=== PATIENT | male | born 1970 | race Two or more races ===

== ENCOUNTER 2021-11-09 11:30 | Inpatient (IN) | payer OTHER ==
[~2021-11-09] VITALS: Ht 170.2 cm; Wt 88.9 kg
[2021-11-09] MEDS ORDERED: OMEGA-31000 MG PO (12:37)
[2021-11-09] MEDS ORDERED: TRICOR48 MG PO (12:38)
[2021-11-09] MEDS ORDERED: PLAVIX75 MG PO (12:38)
[2021-11-09] MEDS ORDERED: LIPITOR20 MG PO (12:38)
[2021-11-17] MEDS ORDERED: PERCOCET 5-3251 EACH PO (15:16)
== END 2021-11-17 17:40 | disposition home or self-care (01) | DRG 331 ==
LOC: ADM 11:30 → EDSTATUS 11:30 → O/R 11-14 06:49 → SURH 11-14 07:00 → SURG 11-14 16:10
PROVIDERS: ADMIT Surgery; ATTEND Surgery
PROC: 07BC4ZZ Excision of Pelvis Lymphatic, Percutaneous Endoscopic Approach (ICD-10-PCS; 2021-11-14)
PROC: 0DBU4ZZ Excision of Omentum, Percutaneous Endoscopic Approach (ICD-10-PCS; 2021-11-14)
PROC: 0DTF4ZZ Resection of Right Large Intestine, Percutaneous Endoscopic Approach (ICD-10-PCS; principal; 2021-11-14 07:00)
DX: D12.2 Benign neoplasm of ascending colon (principal); K66.8 Other specified disorders of peritoneum; Z20.822 Contact with and (suspected) exposure to COVID-19; G47.30 Sleep apnea, unspecified

== ENCOUNTER 2021-12-18 20:46 | Inpatient (IN) | payer OTHER ==
[~2021-12-18] VITALS: Ht 170.2 cm; Wt 82.6 kg
[~2021-12-18 20:46] MED LIST: LIPITOR20 MG PO; OMEGA-31000 MG PO; PERCOCET 5-3251 EACH PO; PLAVIX75 MG PO; TRICOR48 MG PO
[2021-12-18] MEDS ORDERED: SUPER TWIN EP1250 MG (21:32)
--- NOTE | 2021-12-18 21:34 | NUR ---
PTE ALERTA Y ORIENTADO POR BELÉN ESFERAS CON BUEN PATRON RESPIRATORIO. REFIERE QUE TIENE DOLOR ABDOMINAL Y VOMITOS DESDE LA MANANA, EN ADICIONAL REFIERE QUE TUVO UN EP DE VOMITO COLOR CAFE. VOMITOS X2. PTE OPERADO EL DE ARTIS POR
--- NOTE | 2021-12-18 23:25 | NUR ---
SE REALIZAN MUESTRAS DE FADIA A PACIENTE POR ORDEN MEDICA, SE ORIENTA A PACIENTE SOBRE USO Y EFECTOS DE LOS MEDICAMENTOS A SER ADMINISTRADOS. PACIENTE SE LE REALIZAN MUESTRAS DE FADIA Y SE MANTIENE EN ESPERA DE REALIZAR INSERCION DE NASOGASTRICO.
--- NOTE | 2021-12-19 00:13 | NUR ---
SE REALIZA INSERCION DE TUBO NASOGASTRICO #19 EN FOSA NASAL DERECHA. PACIENTE ELIMINA 3ML DE SECRECIONES COLO CAFE OSCURO. SE CONECTA A SUCCION INTERMITENTE Y SE MANTIENE EN MONITOREO MORA.
--- NOTE | 2021-12-19 00:30 | NUR ---
PACIENTE UBICADA EN DARRELL OSVALDO 13 CON MONITOR CARDIACO Y OXIMETRIA CONTINUA. PACIENTE AL MOMENTO ALERTA, CONCIENTE Y ORIENTADA X3 LA MISMA ESTABLE AL MOMENTO.
--- NOTE | 2021-12-19 07:02 | NUR ---
SE LE ORIENTA A PACIENTE MASCULINO ALERTA Y ORIENTADO X3, EN DARRELL #10 CON BARRANDAS ELEVADAS. AREA DE VENOPUNCION PATENTE CAYDEN DE EDEMA Y ENROJECIMIENTO. TUBO NASOGATRICO CON SUCCION INTERMITENTE. CONSULTA CON DR. CANTU. SE LE SRI EN TODO MOMENTO PRIVACIDAD Y SEGURIDAD.
[2021-12-19] MEDS ORDERED: MOMETASONE FURO15 G2 (16:37)
[2021-12-19] MEDS ORDERED: CYCLOBENZAPRINE10 MG (16:37)
[2021-12-19] MEDS ORDERED: FENOFIBRATE48 MG (16:37)
[2021-12-19] MEDS ORDERED: ATORVASTATIN CA10 MG (16:37)
[2021-12-19] MEDS ORDERED: CLOPIDOGREL BIS75 MG (16:37)
== END 2021-12-24 22:33 | disposition home or self-care (01) | DRG 390 ==
LOC: ER 20:46 → SURH 12-19 09:19
PROVIDERS: ADMIT Surgery; ATTEND Surgery
PROC: 0DH67UZ Insertion of Feeding Device into Stomach, Via Natural or Artificial Opening (ICD-10-PCS; principal; 2021-12-19)
PROC: 02HV33Z Insertion of Infusion Device into Superior Vena Cava, Percutaneous Approach (ICD-10-PCS; 2021-12-21)
PROC: 3E0436Z Introduction of Nutritional Substance into Central Vein, Percutaneous Approach (ICD-10-PCS; 2021-12-21)
PROC: BW21ZZZ Computerized Tomography (CT Scan) of Abdomen and Pelvis (ICD-10-PCS; 2021-12-21)
DX: K56.609 Unspecified intestinal obstruction, unspecified as to partial versus complete obstruction (principal); E86.0 Dehydration; Z20.822 Contact with and (suspected) exposure to COVID-19

== ENCOUNTER 2023-01-03 23:47 | Emergency (ER) | payer OTHER ==
[~2023-01-03] VITALS: Ht 170.2 cm; Wt 86.2 kg
[~2023-01-03 23:47] MED LIST changes: +ATORVASTATIN CA10 MG; +CLOPIDOGREL BIS75 MG; +CYCLOBENZAPRINE10 MG; +FENOFIBRATE48 MG; +MOMETASONE FURO15 G2; +SUPER TWIN EP1250 MG
[2023-01-04 03:39] LABS: HEMATOCRIT 38.5 % (39.0-48.0); HEMOGLOBIN 12.8 g/dL (13-16.00); MEAN CELL VOLUME 87.7 fL (80.0-100.00); MEAN CORPUSCULAR HEMOGLOBIN 29.1 pg (27.00-32.0); MEAN CORPUSCULAR HGB CONC 33.2 g/dl (32.0-36.0); PLATELET COUNT 190 K/uL (150-450); RED BLOOD COUNT 4.39 M/uL (4.00-6.00); RED CELL DISTRIBUTION WIDTH 12.8 % (11.5-14.5)
[2023-01-04 03:58] LABS: INR 1.03; PARTIAL THROMBOPLASTIN TIME 31.1 SECONDS (22.0-34.0); PROTHROMBIN TIME 10.8 SECONDS (9.0-11.5)
[2023-01-04 04:02] LABS: ALBUMIN 3.2 gm/dL (3.4-5.0); BILIRUBIN TOTAL 0.72 mg/dL (0.3-1.2); BILIRUBIN,CONJUGATED 0.22 mg/dL (0.0-0.2); BILIRUBIN,UNCONJUGATED 0.5 mg/dL (0.0-0.6); CREATININE SERUM 1.24 mg/dL (0.70-1.30); GFR 60.98; GLOBULINA 5.1 G/DL (2.4-3.5); POTASSIUM 3.89 mEq/L (3.5-5.1); TOTAL PROTEIN 8.3 gm/dL (6.4-8.2)
[2023-01-04 06:01] LABS: URINE APPEARANCE Clear; URINE BILIRRUBIN Negative (NEGATIVE); URINE BLOOD Negative; URINE COLOR Yellow; URINE GLUCOSE Negative (NEGATIVE); URINE LEUKOCYTE Negative; URINE NITRATE Negative
[2023-01-04 06:06] LABS: URINE BACTERIA 21.4 uL (0.0-1933); URINE EPITHELIAL CELLS 4.4 uL (0.0-38.8); URINE WBC 4.4 uL (0.0-23.2)
[2023-01-04 06:17] LABS: URINE PROTEIN 30 (NEGATIVE); URINE RBC 0.5 uL (0.0-20.8)
== END 2023-01-04 11:03 | disposition home or self-care (01) ==
LOC: ER 23:47
PROVIDERS: General Practice
DX: K57.32 Diverticulitis of large intestine without perforation or abscess without bleeding (principal); R10.84 Generalized abdominal pain; Z88.6 Allergy status to analgesic agent; R11.10 Vomiting, unspecified
CPT/HCPCS: 36415; 74177; 96365; 96366; 96372; 99284; J2175; J2250; J7030; Q9965

== ENCOUNTER 2024-07-26 15:50 | Inpatient (IN) | payer OTHER ==
[~2024-07-26] VITALS: Ht 170.2 cm; Wt 86.2 kg
--- NOTE | 2024-07-26 17:32 | NUR ---
PACIENTE ALERTA Y ORIENTADO X3 EL MISMO REFIERE DOLOR CHUY ABDOMINAL.S/V ESTABLE AL MOMENTO.PACIENTE EN DARRELL CON BARADAS ELEVADAS EN ESPERA DE EVALUACION MEDICA.
--- NOTE | 2024-07-26 18:03 | NUR ---
SE EDUCA A PACIENTE SOBRE TRATAMIENTO MEDICO EL CUAL REFIERE ENTENDER, SE REALIZA JESSICA DE MUESTRAS BAJO MEDIDAS ASEPTICAS Y MARIE ORDEN MEDICA. AL MOMENTO PACIENTE PENDIENTE PENDIENTE X-RAY
[2024-07-26 18:12] LABS: BASO % 0.1 % (0.1-1.2); EOS # 0.01 (0.04-0.54); EOS % 0.1 % (0.7-7.0); HEMOGLOBIN 15.1 g/dL (13.7-17.5); LYMPH # 1.33 (1.18-3.74); LYMPH % 8.6 % (19.3-53.1); MEAN CORPUSCULAR HEMOGLOBIN 30.1 pg (25.6-32.2); MONO # 0.98 (0.24-0.82); MONO % 6.3 % (4.7-12.5); NEUT # 13.14 (1.56-6.13); NEUT % 84.6 % (34.0-71.1); PLATELET COUNT 179 K/uL (163-369); RED BLOOD COUNT 5.02 M/uL (4.63-6.08); RED CELL DISTRIBUTION WIDTH 12.2 % (11.6-14.4)
[2024-07-26 18:33] LABS: INR 1.03; PARTIAL THROMBOPLASTIN TIME 30.4 SECONDS (22.0-34.0); PROTHROMBIN TIME 11.2 SECONDS (9.0-11.5)
[2024-07-26 18:38] LABS: ALBUMIN 3.8 gm/dL (3.4-5.0); BILIRUBIN TOTAL 2.27 mg/dL (0.3-1.2); CALCIUM 8.8 mg/dL (8.5-10.1); CREATININE SERUM 1.26 mg/dL (0.70-1.30); GFR 59.42; GLOBULINA 4.7 G/DL (2.4-3.5); POTASSIUM 3.7 mEq/L (3.5-5.1); TOTAL PROTEIN 8.5 gm/dL (6.4-8.2)
[2024-07-26 19:04] LABS: PH,URINE 5.5 (5.0-8.0); URINE APPEARANCE Clear; URINE BILIRRUBIN Negative (NEGATIVE); URINE BLOOD Negative; URINE COLOR Yellow; URINE GLUCOSE Negative (NEGATIVE); URINE KETONE Trace (NEGATIVE); URINE LEUKOCYTE Negative; URINE NITRATE Negative; URINE PROTEIN Trace (NEGATIVE)
[2024-07-26 19:07] LABS: URINE BACTERIA 8.5 uL (0.0-1933); URINE EPITHELIAL CELLS 4.2 uL (0.0-38.8); URINE RBC 2.9 uL (0.0-20.8); URINE WBC 6.6 uL (0.0-23.2)
[2024-07-26 19:08] LABS: URINE CAST 0.14 uL (0.0-1.40)
[2024-07-26] MEDS ORDERED: DIATRIZOATE MEGLUMINE, SODIUM 30 ML BOTTLE ONE (19:12)
[2024-07-27] MEDS ORDERED: METRONIDAZOLE/SODIUM CHLORIDE 500 MG/100 ML PIGGYBACK IV ONE ×3 (00:43→17:00)
[2024-07-27] MEDS ORDERED: METRONIDAZOLE/SODIUM CHLORIDE 500 MG/100 ML PIGGYBACK IV SCH (01:00)
[2024-07-27] MEDS ORDERED: CIPROFLOXACIN IN 5 % DEXTROSE 200 ML IV SCH ×2 (02:35→13:00)
[2024-07-27] MEDS ORDERED: CIPROFLOXACIN IN 5 % DEXTROSE 400 MG/200 ML PIGGYBAG IV ONE ×2 (02:39→13:05)
[2024-07-27] MEDS ORDERED: 0.9 % SODIUM CHLORIDE 1,000 ML IV ONE (02:45)
[2024-07-27] MEDS ORDERED: METRONIDAZOLE/SODIUM CHLORIDE 100 ML IV SCH (09:00)
--- NOTE | 2024-07-27 09:08 | NUR ---
SE RECIBE PTE ALERTA Y ORIENTADO X3 CON BUEN PATRON RESPIRATORIO, CANALIZADO EN BRAZO ZARA CON ANGIO #20 EL CUAL ESTA PATENTE, CAYDEN DE EDEMA Y ERITEMA, RECIBIENDO IV FLUIDS.
[2024-07-27] MEDS ORDERED: ONDANSETRON HCL 4 MG in 0.9 % SODIUM CHLORIDE 50 ML IV PRN (18:00)
[2024-07-27] MEDS ORDERED: ACETAMINOPHEN 500 MG GEL..CAP PO PRN (18:00)
[2024-07-27] MEDS ORDERED: MORPHINE SULFATE 4 MG/ML CARTRIDGE IV PRN (18:00)
[2024-07-27] MEDS ORDERED: 0.9 % SODIUM CHLORIDE 1,000 ML IV SCH (18:00)
[2024-07-27 21:39] VITALS: BP 135/84; O2SAT 91
[2024-07-27 21:58] LABS: MAGNESIUM 2.2 mg/dL (1.8-2.4)
[2024-07-27 22:00] LABS: C-REACTIVE PROTEIN 27.2 MG/DL (0.00-0.29)
[2024-07-28 00:25] LABS: PH,URINE 5.5 (5.0-8.0); URINE APPEARANCE Clear; URINE BILIRRUBIN Negative (NEGATIVE); URINE BLOOD Negative; URINE COLOR Dark Yellow; URINE GLUCOSE Negative (NEGATIVE); URINE LEUKOCYTE Small; URINE NITRATE Negative
[2024-07-28 00:29] LABS: URINE BACTERIA 37.9 uL (0.0-1933); URINE EPITHELIAL CELLS 13.6 uL (0.0-38.8); URINE RBC 2.9 uL (0.0-20.8); URINE WBC 9.8 uL (0.0-23.2)
[2024-07-28 00:41] LABS: URINE KETONE >=160 (NEGATIVE); URINE PROTEIN 100 (NEGATIVE)
[2024-07-28 00:42] LABS: URINE CAST 0.88 uL (0.0-1.40)
[2024-07-28 01:25] VITALS: BP 117/74; O2SAT 93
[2024-07-28] MEDS ORDERED: FAMOTIDINE/PF 20 MG in 0.9 % SODIUM CHLORIDE 8 ML IV PUSH SCH (09:00)
[2024-07-28] MEDS ORDERED: ENOXAPARIN SODIUM 40 MG/0.4 ML SYRINGE SUBCUTANEO SCH (09:00)
[2024-07-28 09:49] VITALS: BP 124/83; O2SAT 97
[2024-07-28 17:18] VITALS: BP 122/82; O2SAT 97
[2024-07-29 00:33] VITALS: BP 118/68; O2SAT 95
[2024-07-29 06:02] LABS: ALBUMIN 2.8 gm/dL (3.4-5.0); BILIRUBIN TOTAL 0.85 mg/dL (0.3-1.2); CALCIUM 8.1 mg/dL (8.5-10.1); CREATININE SERUM 0.92 mg/dL (0.70-1.30); GFR 85.41; GLOBULINA 3.7 G/DL (2.4-3.5); MAGNESIUM 1.8 mg/dL (1.8-2.4); PHOSPHOROUS 2.1 mg/dL (2.5-4.9); POTASSIUM 3.83 mEq/L (3.5-5.1); TOTAL PROTEIN 6.5 gm/dL (6.4-8.2)
[2024-07-29 06:52] LABS: BASO % 0.4 % (0.1-1.2); EOS # 0.16 (0.04-0.54); EOS % 2.1 % (0.7-7.0); HEMATOCRIT 37.1 % (40.1-51.0); HEMOGLOBIN 12.9 g/dL (13.7-17.5); LYMPH % 20.7 % (19.3-53.1); MONO # 0.57 (0.24-0.82); MONO % 7.4 % (4.7-12.5); NEUT # 5.35 (1.56-6.13); PLATELET COUNT 174 K/uL (163-369); RED CELL DISTRIBUTION WIDTH 11.9 % (11.6-14.4)
[2024-07-29 07:09] LABS: C-REACTIVE PROTEIN 16.8 MG/DL (0.00-0.29)
[2024-07-29 09:59] VITALS: BP 128/70; O2SAT 99
== END 2024-07-29 15:59 | disposition home or self-care (01) | DRG 392 ==
LOC: ER 16:25 → MEDI 07-27 18:19
PROVIDERS: Emergency Medicine; General Practice; Internal Medicine Infectious Disease; ADMIT Student in an Organized Health Care Education/Training Program; ATTEND Student in an Organized Health Care Education/Training Program
DX: K57.32 Diverticulitis of large intestine without perforation or abscess without bleeding (principal); I10 Essential (primary) hypertension; E78.5 Hyperlipidemia, unspecified; I73.9 Peripheral vascular disease, unspecified